=== PATIENT | male | born 1940 | race Caucasian/White ===

== ENCOUNTER 2023-11-14 06:39 | Inpatient (IN) | payer OTHER, SELFPAY ==
--- NOTE | 2023-10-10 09:04 | CM ---
Patient is scheduled for an elective R TKR on 11/14/23. Spoke with patient's prior to surgery via telephone. Patient had a L THR at in 2016. Reintroduced role of Orthopedic Navigator. She and patient live in a one story home. There is one
step to enter. He currently functions independently. He uses a rolling walker at night and a cane outside. He also has a raised toilet seat with rails, shower seat and hip kit. He has never had VN services. PCP is Idalmis Roca.
Discussed orthopedic program and post surgical plans. Reviewed anticipated length of stay and that goal is for patient to return home at discharge. Also reviewed outpatient PT. She is in agreement with tentative plan and patient will go directly to
outpatient PT at [facility] ([place] currently schedule for Sunday, 11/18; told to change this to Sunday, 11/15). She will be home with patient and can provide support.
They will complete online education at preop appointment.
Plan: Orthopedic Navigator will remain available to assist with the care of patient and will reassess discharge needs after surgery.
[2023-10-22 13:11] VITALS: BMI 34.6
[2023-10-22 13:50] LABS: Hemoglobin 12.5 g/dL (13.0-18.0); Mean Corp Hgb Conc. 32.1 g/dL (33.0-37.0); Mean Corpuscular Volume 93.5 fL (80.0-94.0); Mean Platelet Volume 10.1 fL (7.4-10.4); Platelet Count 292 10^3/uL (130-400); Red Blood Cell Count 4.17 10^6/uL (4.70-6.10); Red Cell Dist. Width 13.6 % (11.5-14.5); White Blood Cell Count 11.3 10^3/uL (4.8-10.8)
[2023-10-22 14:04] LABS: Glycohemoglobin (HgbA1c) 6.4 % (4.0-5.6)
[2023-10-22 14:27] LABS: ALT (SGPT) 18 U/L (0-50); AST (SGOT) 26 U/L (17-59); Albumin 3.9 g/dl (3.5-5.0); Alkaline Phosphatase 85 U/L (38-126); Blood Urea Nitrogen 15 mg/dl (9-20); Calcium 8.9 mg/dl (8.4-10.2); Carbon Dioxide 31 mmol/L (22-30); Chloride 102 mmol/L (98-107); Estimated Creatinine Clearance 98 ml/min; Glucose 96 mg/dl (70-99); Potassium 4.5 mmol/L (3.5-5.1); Sodium 139 mmol/L (135-145); Total Bilirubin 0.4 mg/dl (0.2-1.3); Total Protein 6.4 g/dl (6.3-8.2); eGFR > 60.00
[2023-10-22 15:21] VITALS: BMI 34.6
[2023-11-14] VITALS (19 sets, daily range): BP systolic 103–176; BP diastolic 50–107; PULSE 84–101; O2SAT 92–93
[2023-11-14] MEDS: NORMOSOL-R 1000 IV ×2 (07:30→11:28)
[2023-11-14] MEDS: TYLENOL 650 MG PO ×4 (07:59→21:02)
[2023-11-14] MEDS: CELEBREX 200 MG PO (07:59)
[2023-11-14] MEDS: ROXICODONE 5 MG PO (11:28)
[2023-11-14] MEDS: MUCINEX 600 MG PO ×2 (12:51→21:03)
[2023-11-14] MEDS: PROTONIX 40 MG PO (12:52)
[2023-11-14] MEDS: FLOMAX 0.400000000000000022 MG PO (14:09)
--- NOTE | 2023-11-14 15:18 | W.PN.UPDATE ---
Update Note
Progress Note Update
R knee OA s/p R TKA w/ Dr Martinez 11/14/23
- s/p L TKA, 2000, at an outside facility and L ASHU, 2015, by Dr Martinez
DVT prophylaxis - ASA
Paroxysmal SVT and PACs/PVCs, asymptomatic - monitor on tele
History of recurrent syncope, unclear etiology - loop recorder to be placed AFTER recovery for R TKA
Peripheral arterial disease per records - no SCDs/foot pumps per PCP
- on full dose ASA daily x4 weeks for blood clot prevention
Cough variant asthma and COPD per chest x-ray 2018 - monitor O2
- Continue Mucinex
- IS
GERD - continue PPI therapy
BPH per records - monitor voids
- Start daily Flomax
Chronic mild anemia - non-invasive hgb in AM
Mechanical failure of L TKA, status post revision of L TKA, 2013, at an outside facility
Hyperlipidemia
Chronic post-nasal drip
Lumbar degenerative disc disease with stenosis
Melanoma, 2019, status post excision
Macular degeneration
Hearing impairment bilaterally
Mild leukocytosis, asymptomatic
Prediabetes, A1c 6.4
Obesity, BMI 34.6
Remote history of tobacco abuse
Remote history of alcohol abuse per records
[2023-11-14] MEDS: ANCEF 5 IV (17:40)
[2023-11-14] MEDS: ASPIRIN 325 MG PO (17:41)
--- NOTE | 2023-11-14 18:39 | PTCARENOTE ---
Pt received from PACU in bed. Pt denies pain, BECKMAN w/ good sensation, assisted OOB to chair. NSR w/ PVCs on monitor. R knee Aquacell dressing c/d/i. Full assessment and admission as documented.
Pt OOB in chair for 15 minutes, HR 130's sinus, pt asymptomatic. BP wnl. Assited back to bed, HR back to 80's NSR w/ PVCs.
[2023-11-14] MEDS: BACTROBAN 2% OINTMENT 1 APPLIC NASAL (21:00)
[2023-11-14] MEDS: DECADRON 4 MG PO (21:01)
[2023-11-14] MEDS: LIPITOR 10 MG PO (21:03)
[2023-11-15] MEDS: TYLENOL PO (00:07)
[2023-11-15] MEDS: ANCEF 5 IV (02:38)
[2023-11-15] MEDS: TYLENOL 650 MG PO ×3 (02:44→11:44)
[2023-11-15 04:35] VITALS: BP 164/95
[2023-11-15] MEDS: ROXICODONE 10 MG PO ×2 (05:59→10:05)
[2023-11-15 07:54] VITALS: BP 154/91
[2023-11-15] MEDS: CELEBREX 200 MG PO (08:16)
[2023-11-15] MEDS: BACTROBAN 2% OINTMENT 1 APPLIC NASAL (08:16)
[2023-11-15] MEDS: MUCINEX 600 MG PO (08:16)
[2023-11-15] MEDS: FLOMAX 0.400000000000000022 MG PO (08:17)
[2023-11-15] MEDS: DECADRON 4 MG PO (08:17)
[2023-11-15] MEDS: PROTONIX 40 MG PO (08:17)
[2023-11-15] MEDS: ASPIRIN 325 MG PO (08:17)
--- NOTE | 2023-11-15 09:02 | CM ---
Addendum entered by Jessika Up 11/15/23 11:51:
Patient did well in therapy. He and his have no concerns about discharge plans.
Addendum entered by Jessika Up 11/15/23 11:16:
Discussed with PT. Recommendation is for patient to have VN services at discharge. Discussed with patient and ; they are in agreement. Options and PAC data reviewed. They select VN.
VN referral was completed and sent to [facility] through [employer] with request for start of care on 11/15. Confirmation received of their ability to accept case. foreign exchange position clerk to fax discharge instructions to [facility] when complete.
Original Note:
Reviewed chart and held rounds with PT, OT and nursing. Patient admitted as planned for elective R TKR. Met with patient at bedside. Confirmed information previously obtained for assessment. Also discussed discharge plans. The plan is for patient to
return home at discharge. He will have support from his when he goes home. Patient will go directly to outpatient PT and will go to [facility]. He has an appointment scheduled for Sunday, 11/15.
Patient has a rolling walker, cane and hip kit at home.
He will use [facility] pharmacy for discharge prescriptions
Discharge plans were reviewed with patient's on 11/14. She will be present for therapy this morning.
[2023-11-15 10:16] VITALS: BP 156/88
[2023-11-15 11:40] VITALS: BP 124/74; PULSE 71; O2SAT 94
[2023-11-15] MEDS: LIDOCAINE 4% PATCH 2 PATCH TOPICAL (11:45)
[2023-11-15] MEDS: TORADOL 15 MG IV (11:45)
[2023-11-15 11:56] VITALS: BP 157/88
--- NOTE | 2023-11-15 12:19 | W.PN.ORTHO ---
Today's Communication / Plan
-
D/c today since clinically stable, did well w/ PT and OT.
Assessment
.
Distal Motor Intact: Yes
Dressing:
Clean, dry and intact.
Assessment:
R knee OA s/p R TKA w/ Dr Martinez 11/14/23
- s/p L TKA, 2000, at an outside facility and L ASHU, 2015, by Dr Martinez
DVT prophylaxis - ASA
Paroxysmal SVT and PACs/PVCs, asymptomatic - maintaining NSR on tele
History of recurrent syncope, unclear etiology - loop recorder to be placed AFTER recovery for R TKA
- No syncopal or presyncopal episodes during admission
Peripheral arterial disease per records - no SCDs/foot pumps per PCP
- on full dose ASA daily x4 weeks for blood clot prevention
Cough variant asthma and COPD per chest x-ray 2017 - O2 stable on RA
- Continue Mucinex
- IS
GERD - continue PPI therapy
BPH per records - voiding appropriately w/ Flomax during admission
- No need for additional Flomax upon d/c
Chronic mild anemia - non-invasive hgb 11.7 POD 1
- Asymptomatic, hemodynamically stable
Mechanical failure of L TKA, status post revision of L TKA, 2013, at an outside facility
Hyperlipidemia
Chronic post-nasal drip
Lumbar degenerative disc disease with stenosis
Melanoma, 2019, status post excision
Macular degeneration
Hearing impairment bilaterally
Mild leukocytosis, asymptomatic
Prediabetes, A1c 6.4
Obesity, BMI 34.6
Remote history of tobacco abuse
Remote history of alcohol abuse per records
Plan
.
Surgery / Date: R TKA w/ Dr Martinez 11/14/23
DVT Prophylaxis: Aspirin
Activity:
Out of bed.
PT/OT
Discharge Plan: Home w/ VN
Subjective
.
.:
Patient examined resting in his chair.
R knee pain initially unbearable w/ therapy; did improve; however, w/ recent pain med adjustments.
Denies any other new complaints.
Eager for potential d/c today.
Vital Signs and Labs
.
Vital Signs and Labs:
Lab Results
10/22/23 13:02
10/22/23 13:02
Temp Pulse Resp BP Pulse Ox
97.3 F 70 18 157/88 92
11/15/23 11:56 11/15/23 11:56 11/15/23 11:56 11/15/23 11:56 11/15/23 11:56
Non-invasive Hgb result: 11.7
Physical Exam
-
HEENT: No pallor, cyanosis, or jaundice. Throat clear.
NECK: Supple. No JVD.
RESPIRATORY: Lungs clear to auscultation.
CVS: S1, S2 normal. RRR.�
ABDOMEN: Soft, non-tender. No distension. Obese.
EXTREMITIES: Strength equal, no calf pain with palpation/dorsiflexion. Calves soft.
RADIO SCRIPT WRITER: AOx3. No focal deficits. roving weight gauger grossly intact
--- NOTE | 2023-11-15 12:31 | W.DS.TRANS ---
DC Summary - Card Cleaner
-
Discharge Instructions:
Sleep Apnea Risk Intermediate
Discharge Diagnosis/Procedures R knee OA s/p R TKA w/ Dr Martinez 11/14/23
Diet Other diet
Additional Diets Diabetic carb controlled x1 week for wound
healing/infection prevention; then resume
regular diet.
Activity As tolerated,With Walker
Driving Restrictions Not until seen by your Dr
Bathing Restrictions OK to Shower
Other Services PT,VN
Wound Care Dressing to be removed 1 week post-surgery.
Instructions:
Stand-Alone Forms: Total Hip/Knee Replacement D/C
Changes to Home Medications: Yes
Discharge Medications:
DC Medications w/original date entered in [employer]
esomeprazole magnesium 40 mg capsule,delayed release 40 mg PO DAILY Gastrointestinal Issue 10/16/23
fluticasone propionate 110 mcg/actuation HFA aerosol inhaler 2 puff inhalation BID Lung/Breathing Issues 10/16/23
guaifenesin 600 mg tablet, extended release 12 hr (Mucinex) 600 mg PO BID Congestion 10/16/23
simvastatin 10 mg tablet 10 mg PO HS High Cholesterol 10/16/23
vit C 250 mg-vit E 90 mg-zinc 40 mg-copper 1 [id number] capsule (PreserVision AREDS-2) 2 tab PO DAILY Supplement 10/16/23
mupirocin 2 % topical ointment 1 applic intranasal BID #1 tube 10/22/23
acetaminophen 500 mg tablet 1,000 mg (2 x 500 mg) PO Q6H #60 tabs 11/15/23
aspirin 325 mg tablet 325 mg PO DAILY #30 tabs 11/15/23
celecoxib 200 mg capsule 200 mg PO DAILY #14 caps 11/15/23
dexamethasone 4 mg tablet 4 mg PO BID Anti-inflammatory #5 tabs 11/15/23
docusate sodium 100 mg capsule 100 mg PO BID #30 caps 11/15/23
gabapentin 100 mg capsule 200 mg (2 x 100 mg) PO TID neuropathic pain #30 caps 06/27/24
lidocaine 4 % topical patch 2 patch topical DAILY #30 ea 11/15/23
ondansetron HCl 4 mg tablet 4 mg PO Q6H PRN nausea and vomiting #30 tabs 11/15/23
oxycodone 5 mg tablet 5 - 10 mg (1 - 2 x 5 mg) PO Q4H PRN moderate-severe pain #30 tabs 11/15/23
sennosides 8.6 mg tablet (Senna Laxative) 17.2 mg (2 x 8.6 mg) PO BID #30 tabs 11/15/23
Home Medication Changes
acetaminophen 500 mg tablet 1,000 mg (2 x 500 mg) PO Q6H #60 tabs 11/15/23
aspirin 325 mg tablet 325 mg PO DAILY #30 tabs 11/15/23
celecoxib 200 mg capsule 200 mg PO DAILY #14 caps 11/15/23
dexamethasone 4 mg tablet 4 mg PO BID Anti-inflammatory #5 tabs 11/15/23
docusate sodium 100 mg capsule 100 mg PO BID #30 caps 11/15/23
gabapentin 100 mg capsule 200 mg (2 x 100 mg) PO TID neuropathic pain #30 caps 11/15/23
lidocaine 4 % topical patch 2 patch topical DAILY #30 ea 11/15/23
ondansetron HCl 4 mg tablet 4 mg PO Q6H PRN nausea and vomiting #30 tabs 11/15/23
oxycodone 5 mg tablet 5 - 10 mg (1 - 2 x 5 mg) PO Q4H PRN moderate-severe pain #30 tabs 11/15/23
sennosides 8.6 mg tablet (Senna Laxative) 17.2 mg (2 x 8.6 mg) PO BID #30 tabs 11/15/23
Pending Results: No
== END 2023-11-15 14:11 | disposition home health service (06) | DRG 470 ==
LOC: 2 SOUTH 06:39
PROVIDERS: ADMITTING PHYSICIAN Orthopaedic Surgery; FAMILY PHYSICIAN Internal Medicine
PROC: 0SRC0J9 Replacement of Right Knee Joint with Synthetic Substitute, Cemented, Open Approach (ICD-10-PCS; 2023-11-15)
DX: M17.11 Unilateral primary osteoarthritis, right knee (principal); I47.10 Supraventricular tachycardia, unspecified; M51.06 Intervertebral disc disorders with myelopathy, lumbar region; E78.5 Hyperlipidemia, unspecified; I73.9 Peripheral vascular disease, unspecified; J45.991 Cough variant asthma; J44.9 Chronic obstructive pulmonary disease, unspecified; K21.9 Gastro-esophageal reflux disease without esophagitis; M48.061 Spinal stenosis, lumbar region without neurogenic claudication; N40.0 Benign prostatic hyperplasia without lower urinary tract symptoms; D64.9 Anemia, unspecified; H35.30 Unspecified macular degeneration; F10.11 Alcohol abuse, in remission; H91.93 Unspecified hearing loss, bilateral; D72.829 Elevated white blood cell count, unspecified; R73.03 Prediabetes; E66.9 Obesity, unspecified; Z96.652 Presence of left artificial knee joint; Z96.642 Presence of left artificial hip joint; Z68.34 Body mass index [BMI] 34.0-34.9, adult; Z87.891 Personal history of nicotine dependence; Z85.820 Personal history of malignant melanoma of skin
CPT/HCPCS: 36415; 73560; 80053; 83036; 85027; 87070; 93005; 94640; 97110; 97116; 97163; 97166; 97530; 97535; C1713; C1776